=== PATIENT | male | born 1980 | race Hispanic/Latino ===

== ENCOUNTER 2018-06-24 08:18 | Emergency (ER) | payer SELFPAY ==
[2018-06-24] MEDS ORDERED: Ondansetron HCl/PF 4 MG/2 ML Vial ONE ×2 (08:35→08:36)
[2018-06-24] MEDS ORDERED: Famotidine/PF 20 mg/2ml Vial ONE (08:35)
[2018-06-24] MEDS ORDERED: Promethazine HCl 25 MG/ML VIAL ONE (08:36)
[2018-06-24 09:08] LABS: #Basophils 0.1 thou/uL (0.0-0.2); #Lymphocytes 1.5 thou/uL (1.20-3.40); #Monocytes 1.3 thou/uL (0.11-0.59); #Neutrophils 15.4 thou/uL (1.40-6.50); %Basophils 0.7 % (0.0-1.0); %Lymphocytes 8.1 % (21.0-51.0); %Monocytes 6.9 % (0.0-10.0); %Neutrophils 84.3 % (42.0-75.0); Hemoglobin 16.8 g/dL (14.0-18.0); Mean Corpuscular HGB CONC 35.6 g/dL (32.0-36.0); Mean Corpuscular Volume 78.7 fL (78.0-98.0); Mean Platelet Volume 5.3 fL (7.4-10.4); Platelet Count 441 thou/uL (130-400); RBC Distribution Width 11.3 % (11.5-14.5); Red Blood Cell (RBC) Count 5.99 mill/uL (4.70-6.10); White Blood Cell (WBC) Count 18.2 thou/uL (4.8-10.8)
--- NOTE | 2018-06-24 09:40 | RAD ---
ACUTE ABDOMINAL SERIES FRONTAL VIEW CHEST TWO VIEW ABDOMEN: Indication: Recurrent vomiting with epigastric pain, abdominal pain. FINDINGS: The lungs are clear. No free air beneath the hemidiaphragms. Cardiac silhouette is within normal limi ts in size. The bowel gas pattern is nonobstructed. There is a rounded calcific density in the left l ower quadrant, not fully characterized on the basis of this exam. IMPRESSION: 1. No consolidation. 2. No free air. 3. Nonobstructed bowel gas pattern. 4. Nonspecific calcific density of the left lower quadrant, not further localized, measuring approxim ately 1 cm. POS: [facility]
[2018-06-24 10:17] LABS: ALT (SGPT) 20 U/L (8-55); AST (SGOT) 32 U/L (5-34); Albumin 4.6 g/dL (3.5-5.0); Alkaline Phosphatase 108 U/L (40-150); Anion Gap 17 mmol/L (10-20); BUN (Urea Nitrogen) 5 mg/dL (8.9-20.6); Bilirubin, Total 0.4 mg/dL (0.2-1.2); Calc. Creatinine Clearance 0 mL/min (70-130); Calcium 9.5 mg/dL (7.8-10.44); Carbon Dioxide 20 mmol/L (22-29); Chloride 103 mmol/L (98-107); Estimated GFR-MDRD 51; Globulin 3.5 g/dL (2.4-3.5); Glucose 174 mg/dL (70-105); Lipase 35 U/L (8-78); Potassium 3.4 mmol/L (3.5-5.1); Protein, Total 8.1 g/dL (6.0-8.3); Sodium 137 mmol/L (136-145)
== END 2018-06-24 10:57 | disposition home or self-care (01) ==
LOC: SCSER 08:18
DX: K29.00 Acute gastritis without bleeding (principal); E86.0 Dehydration; F32.9 Major depressive disorder, single episode, unspecified; F41.9 Anxiety disorder, unspecified; F17.210 Nicotine dependence, cigarettes, uncomplicated; Z79.899 Other long term (current) drug therapy
CPT/HCPCS: 74022; 80053; 83690; 85025; 96361; 96365; 96375; J2405; J2550; S0028

== ENCOUNTER 2018-06-25 09:30 | Emergency (ER) | payer SELFPAY ==
[2018-06-25] MEDS ORDERED: Ondansetron HCl/PF 4 MG/2 ML Vial ONE (09:47)
[2018-06-25] MEDS ORDERED: Pantoprazole 40 MG VIAL ONE (09:47)
[2018-06-25] MEDS ORDERED: Lidocaine Viscous Sol 2% 15 ml UD Cup ONE (09:48)
[2018-06-25] MEDS ORDERED: Mag-Al Plus 1200 MG/1200 MG/120 MG/30 ML UDCUP ONE (09:48)
[2018-06-25 10:06] LABS: #Lymphocytes 1.5 thou/uL (1.20-3.40); #Monocytes 0.5 thou/uL (0.11-0.59); #Neutrophils 5.6 thou/uL (1.40-6.50); %Basophils 0.6 % (0.0-1.0); %Eosinophils 0.1 % (0.0-10.0); %Lymphocytes 19.1 % (21.0-51.0); %Monocytes 6.1 % (0.0-10.0); Hemoglobin 14.8 g/dL (14.0-18.0); Mean Corpuscular HGB CONC 36.5 g/dL (32.0-36.0); Mean Corpuscular Hemoglobin 28.6 pg (27.0-31.0); Mean Corpuscular Volume 78.6 fL (78.0-98.0); Mean Platelet Volume 5.1 fL (7.4-10.4); Platelet Count 320 thou/uL (130-400); RBC Distribution Width 11.2 % (11.5-14.5); Red Blood Cell (RBC) Count 5.15 mill/uL (4.70-6.10); White Blood Cell (WBC) Count 7.6 thou/uL (4.8-10.8)
[2018-06-25 10:16] LABS: ALT (SGPT) 33 U/L (8-55); AST (SGOT) 52 U/L (5-34); Albumin 4.5 g/dL (3.5-5.0); Alkaline Phosphatase 101 U/L (40-150); Anion Gap 15 mmol/L (10-20); BUN (Urea Nitrogen) 4 mg/dL (8.9-20.6); Bilirubin, Total 0.6 mg/dL (0.2-1.2); CK (CPK) 1849 U/L (30-200); Calc. Creatinine Clearance 0 mL/min (70-130); Calcium 9.2 mg/dL (7.8-10.44); Carbon Dioxide 22 mmol/L (22-29); Chloride 103 mmol/L (98-107); Estimated GFR-MDRD 69; Globulin 2.8 g/dL (2.4-3.5); Glucose 170 mg/dL (70-105); Potassium 3.3 mmol/L (3.5-5.1); Protein, Total 7.3 g/dL (6.0-8.3); Sodium 137 mmol/L (136-145)
[2018-06-25 10:17] LABS: CKMB 3.5 ng/mL (0-6.6); Troponin I Less than 0.010 ng/mL (< 0.028)
[2018-06-25 10:18] LABS: Acetaminophen Less than 6.0 mcg/mL (10.0-30.0); Alcohol Less than 10 mg/dL (Less than 10); Lipase 43 U/L (8-78); Salicylate Less than 8.0 mg/dL (15.0-30.0)
[2018-06-25 10:49] LABS: Bilirubin Negative (Negative); Blood, Urine Negative (Negative); Clarity Clear (Clear); Glucose, Urine (Dipstick) Negative (Negative); Leukocyte Negative (Negative); Nitrite Negative (Negative); Protein, Urine (Dipstick) Negative (Neg-Trace); Urobilinogen 0.2 mg/dL (0.2-1.0)
--- NOTE | 2018-06-25 11:46 | CT ---
NONCONTRAST CT ABDOMEN AND PELVIS: Date: 06-25-18 History: Epigastric pain with emesis. History of gastritis. Comparison: None available. FINDINGS: Lack of intravenous contrast does limit sensitivity for evaluation of the parenchymal organs. However , the lung bases, liver, spleen, pancreas, bilateral adrenal glands, kidneys, and incompletely disten ded urinary bladder demonstrate a grossly normal nonenhanced CT appearance. No renal or ureteral calculi are seen bilaterally and there is no evidence of hydronephrosis. The appendix is visualized and filled with gas and it is normal in caliber. No free fluid, fluid collection, and lymphadenopathy is seen in the abdomen or pelvis. There is a small fat containing umbilical hernia. Minimal degenerative change is seen in the spine. IMPRESSION: 1. No acute findings are seen on this nonenhanced CT scan of the abdomen and pelvis. 2. No renal or ureteral calculi are seen bilaterally. 3. No CT evidence of appendicitis. 4. Tiny fat containing umbilical hernia. POS: [facility]
== END 2018-06-25 12:15 | disposition home or self-care (01) ==
LOC: SCSER 09:30
DX: K29.70 Gastritis, unspecified, without bleeding (principal); K27.9 Peptic ulcer, site unspecified, unspecified as acute or chronic, without hemorrhage or perforation; F41.9 Anxiety disorder, unspecified; F32.9 Major depressive disorder, single episode, unspecified; F17.210 Nicotine dependence, cigarettes, uncomplicated; Z79.899 Other long term (current) drug therapy
CPT/HCPCS: 36415; 74176; 80053; 80307; 81003; 82550; 82553; 83690; 84484; 85025; 93005; 96361; 96374; 96375; C9113; J2270; J2405

== ENCOUNTER 2023-06-29 15:11 | Observation (INO) | payer SELFPAY ==
[2023-06-29 16:15] LABS: #Eosinphils 0.6 thou/uL (0.0-0.7); #Monocytes 0.4 thou/uL (0.11-0.59); #Neutrophils 4.8 thou/uL (1.40-6.50); %Basophils 0.5 % (0.0-1.0); %Eosinophils 7.5 % (0.0-10.0); %Lymphocytes 24.4 % (21.0-51.0); %Monocytes 5.2 % (0.0-10.0); Hematocrit 42.3 % (42.0-52.0); Hemoglobin 14.5 g/dL (14.0-18.0); Mean Corpuscular HGB CONC 34.3 g/dL (32.0-36.0); Mean Corpuscular Hemoglobin 28.7 pg (27.0-31.0); Mean Corpuscular Volume 83.8 fl (78.0-98.0); Mean Platelet Volume 8.2 fL (7.4-10.4); Platelet Count 339 10x3/uL (130-400); Red Blood Cell (RBC) Count 5.05 mill/uL (4.70-6.10); White Blood Cell (WBC) Count 7.7 10x3/uL (4.8-10.8)
[2023-06-29 16:28] LABS: INR-International Normal Ratio 0.9; PTT 26.1 sec (22.9-36.1); Prothrombin Time 12.6 sec (12.0-14.7)
[2023-06-29 16:39] LABS: ALT (SGPT) 14 U/L (8-55); AST (SGOT) 15 U/L (5-34); Albumin 4.4 g/dL (3.5-5.0); Alkaline Phosphatase 106 U/L (40-110); Anion Gap 14 mmol/L (10-20); BUN (Urea Nitrogen) 10 mg/dL (8.9-20.6); Bilirubin, Total 0.6 mg/dL (0.2-1.2); Calc. Creatinine Clearance 0 mL/min (70-130); Calcium 9.2 mg/dL (7.8-10.44); Carbon Dioxide 24 mmol/L (22-29); Chloride 106 mmol/L (98-107); Estimated GFR 114; Globulin 3.5 g/dL (2.4-3.5); Glucose 104 mg/dL (70-105); Potassium 4.2 mmol/L (3.5-5.1); Protein, Total 7.9 g/dL (6.0-8.3); Sodium 140 mmol/L (136-145)
[2023-06-29] MEDS ORDERED: Bupivacaine PF 0.5% 30 ML VIAL ONE (19:19)
[2023-06-29] MEDS ORDERED: Bacitracin Zinc Ointment 30 gm TUBE ONE (19:19)
[2023-06-29] MEDS ORDERED: Sodium Chloride 0.9% 100 ML ONE (19:40)
[2023-06-29] MEDS ORDERED: CEFAZOLIN 2 GM VIAL ONE (19:40)
[2023-06-29] MEDS ORDERED: traMADol HCl 50 MG TAB PO PRN (21:04)
[2023-06-29] MEDS ORDERED: Acetaminophen/Codeine 30-300mg Tablet PO PRN (21:04)
[2023-06-29] MEDS ORDERED: Ondansetron PF 4 MG/2 ML Vial IVP PRN (21:04)
[2023-06-29] MEDS ORDERED: Acetaminophen 325 MG TAB PO PRN (21:04)
[2023-06-29] MEDS ORDERED: Promethazine HCl 25 MG/ML VIAL IM PRN ×2 (21:04→23:05)
[2023-06-29] MEDS ORDERED: Bisacodyl 10 MG SUPP PR PRN (21:04)
[2023-06-29] MEDS ORDERED: Morphine 4 MG/ML VIAL SLOW IVP PRN (21:04)
[2023-06-29] MEDS ORDERED: Meperidine HCl/PF 25 MG/ML VIAL IM PRN (21:06)
[2023-06-29] MEDS ORDERED: Ketorolac Tromethamine 30 MG/ML VIAL IVP PRN (21:06)
[2023-06-29] MEDS ORDERED: fentaNYL PF 100 MCG/2 ML SYRINGE ONE (21:11)
[2023-06-29] MEDS ORDERED: Communication Order-Pharmacy FS SCH (21:15)
[2023-06-29] MEDS ORDERED: PROPOFOL 200 MG/20 ML VIAL ONE (21:29)
[2023-06-29] MEDS ORDERED: Ketorolac Tromethamine 30 MG/ML VIAL ONE (21:29)
[2023-06-29] MEDS ORDERED: Ondansetron PF 4 MG/2 ML Vial ONE (21:29)
[2023-06-29] MEDS ORDERED: Dexamethasone 20 MG/5 ML VIAL ONE (21:29)
[2023-06-29] MEDS ORDERED: Lidocaine 1% PF 5 ML VIAL ONE (21:29)
[2023-06-29] MEDS ORDERED: Midazolam HCl 2 mg/2 ml Vial ONE (21:31)
[2023-06-29] MEDS ORDERED: Gentamicin 80 MG/2 ML VIAL IM SCH (22:00)
[2023-06-29] MEDS ORDERED: Gentamicin Sulfate 100 MG in Premix Bag 1 BAG IVPB SCH (22:00)
[2023-06-29] MEDS ORDERED: TETANUS, DIPHTHERIA TOX,ADULT (TDVAX) 0.5 ML VIAL IM ONE (23:00)
[2023-06-29] MEDS ORDERED: Ondansetron HCl/PF 4 MG/2 ML Vial IVP PRN (23:05)
[2023-06-29] MEDS ORDERED: HYDROmorphone 2 MG/ML VIAL SLOW IVP PRN (23:05)
[2023-06-29] MEDS ORDERED: Morphine Sulfate 2 MG/ML SYRINGE SLOW IVP PRN (23:05)
[2023-06-29] MEDS ORDERED: PACU-Morphine 4MG/ML VIAL SLOW IVP PRN (23:05)
[2023-06-29] MEDS: CEFAZOLIN 2 GM in Sodium Chloride 0.9% 100 ML IVPB SCH (23:52)
[2023-06-30 00:18] VITALS: BMI 37.8
[2023-06-30] MEDS: Gentamicin Sulfate 100 MG in Premix Bag 1 BAG IVPB SCH ×3 (01:37→18:21)
[2023-06-30] MEDS: HYDROcodone/Acetaminophen 5/325 mg Tablet PO PRN ×4 (03:50→20:55)
[2023-06-30] MEDS: CEFAZOLIN 2 GM in Sodium Chloride 0.9% 100 ML IVPB SCH ×2 (05:01→14:02)
[2023-06-30 05:27] LABS: #Monocytes 0.2 thou/uL (0.11-0.59); #Neutrophils 8.6 thou/uL (1.40-6.50); %Basophils 0.2 % (0.0-1.0); %Eosinophils 0.1 % (0.0-10.0); %Lymphocytes 10.4 % (21.0-51.0); %Monocytes 1.9 % (0.0-10.0); Hematocrit 40.6 % (42.0-52.0); Hemoglobin 13.7 g/dL (14.0-18.0); Mean Corpuscular HGB CONC 33.7 g/dL (32.0-36.0); Mean Corpuscular Hemoglobin 28.8 pg (27.0-31.0); Mean Corpuscular Volume 85.3 fl (78.0-98.0); Mean Platelet Volume 8.6 fL (7.4-10.4); Platelet Count 320 10x3/uL (130-400); RBC Distribution Width 12.8 % (11.5-14.5); Red Blood Cell (RBC) Count 4.76 mill/uL (4.70-6.10); White Blood Cell (WBC) Count 9.9 10x3/uL (4.8-10.8)
[2023-06-30] MEDS: VANCOMYCIN 1.25 GM/250 ML BAG 1.25 GM in Premix Bag 1 BAG IVPB SCH ×2 (05:35→16:12)
[2023-06-30] MEDS: Aspirin 81 mg Enteric Coated Tablet PO SCH ×2 (09:07→20:54)
[2023-06-30 16:01] VITALS: BP 109/68; TEMP 97.9
[2023-06-30 17:56] LABS: Anion Gap 13 mmol/L (10-20); BUN (Urea Nitrogen) 10 mg/dL (8.9-20.6); CK (CPK) 72 U/L (30-200); Calc. Creatinine Clearance 168 mL/min (70-130); Calcium 8.4 mg/dL (7.8-10.44); Carbon Dioxide 22 mmol/L (22-29); Chloride 105 mmol/L (98-107); Estimated GFR 111; Glucose 135 mg/dL (70-105); Potassium 3.8 mmol/L (3.5-5.1); Sodium 136 mmol/L (136-145)
[2023-06-30 17:57] LABS: Troponin I Less than 0.010 ng/mL (< 0.028)
[2023-06-30 20:38] LABS: Hemoglobin A1c 5.7 % (4.0-6.0)
[2023-06-30 20:41] LABS: Cardiac Risk 4.1 (Less than 4.5)
[2023-06-30 20:45] LABS: Troponin I Less than 0.010 ng/mL (< 0.028)
== END 2023-06-30 21:45 | disposition home or self-care (01) ==
LOC: ERS 15:11 → SDC/OP 21:25 → SURG A 06-30 00:01
PROVIDERS: ADMIT Orthopaedic Surgery Hand Surgery; ATTEND Orthopaedic Surgery Hand Surgery
PROC: 0H9GXZZ Drainage of Left Hand Skin, External Approach (ICD-10-PCS; principal; 2023-06-30)
DX: S60.451A Superficial foreign body of left index finger, initial encounter (principal); L02.512 Cutaneous abscess of left hand; M65.842 Other synovitis and tenosynovitis, left hand; R07.89 Other chest pain; E11.9 Type 2 diabetes mellitus without complications; K21.9 Gastro-esophageal reflux disease without esophagitis; F41.8 Other specified anxiety disorders; Z79.84 Long term (current) use of oral hypoglycemic drugs; Z79.899 Other long term (current) drug therapy; Z88.6 Allergy status to analgesic agent; W34.011A Accidental discharge of paintball gun, initial encounter
CPT/HCPCS: 36415; 71046; 80048; 80053; 80061; 82550; 83036; 84443; 84484; 85025; 85610; 85730; 87070; 87077; 87186; 87205; 93005; 93010; G0378; J1100; J1580; J1885; J2250; J2270; J2405; J2704; J3370; J3490; S0020